=== PATIENT | male | born 1980 | race Caucasian/White ===

== ENCOUNTER 2018-09-11 05:50 | Inpatient (IN) | payer MEDICAID ==
[~2018-09-11] VITALS: Ht 172.7 cm; Wt 107.0 kg
[~2018-09-11 05:50] MED LIST: ALLOPURINOL 30300 M1 PO; CIPRO500 MG PO; DARVOCET-N 1001 EACH PO; FISH OIL 1,001000 M2 PO; FLAGYL500 MG PO; HYDROCODON-ACE1 EAC7 PO
[2018-09-11 06:34] VITALS: BP 148/75
[2018-09-11 14:00] VITALS: BP 124/82
--- NOTE | 2018-09-11 14:43 | NUR ---
PT TO ROOM 114 VIA BED. PT REPORTS PAIN CONTROLLED. DENIES NAUSEA AT THIS TIME. 100% ON 2L NC. FAMILY AT BS. GROSSMAN CATH DRAINING
--- NOTE | 2018-09-11 17:03 | NUR ---
PT TO ROOM THIS AFTERNOON. PAIN CONTROLLED WITH PAIN MEDS. TOLERATING CLEAR LIQUIDS WELL. GROSSMAN CATHETER DRAINING CLEAR YELLOW URINE
[2018-09-11 20:00] VITALS: BP 109/64
--- NOTE | 2018-09-11 21:19 | NUR ---
INITAL ASSESMENT COMPLETED AT 1999. PT REORTS PAIN SCORE AT 1-2 AFTER RECIEVING PAIN MEDS AT END OF DAY SHIFT. PT AFEBRILE, HEART RATE AND BLOOD PRESSURE WITHIN NORMAL LIMITS. CONTINUOUS PULSE OXYMETRY WITH SAT OF 97% ON O2 AT 2 LITERS. PT INSTRUCTED TO CALL FOR ASSISTANCE AND TO REPORT ONSET OF PAIN. EDUCATED PT ON POST OPERATIVE CONCERNS FOR BOWEL RESECTION, COLOSTOMY REANASTAMOSIS. ENCOURAGE PT TO USE INCENTIVE SPIROMETRY Q 1 HR WHILE AWAKE. CALL LIGHT IN REACH, PT DEMONSTRATES PROPER USE.
[2018-09-12] VITALS: BP 102/66
[2018-09-12 04:00] VITALS: BP 105/61
[2018-09-12 04:09] LABS: ABSOLUTE BASOPHILS 0.1 thou/uL (0.0-0.2); ABSOLUTE LYMPHOCYTES 2.5 thou/uL (0.8-5.3); ABSOLUTE MONOCYTES 0.9 thou/uL (0.0-1.2); BASOPHILS 0.6 %; EOSINOPHILS 0.2 %; HEMOGLOBIN 13.5 gm/dL (14.0-18.0); MCH 30.6 pg (26.0-34.0); MCHC 33.9 g/dL (28.0-37.0); MCV 90.3 fL (80.0-100.0); MONOCYTES 8.4 %; MPV 7.5 fl. (7.2-11.1); NUCLEATED RBCS 0 /100WBC; PLATELET COUNT* 185 thou/uL (150-400); POLYS 66.8 %; RBC 4.43 mil/uL (4.50-6.00); RDW-CV 13.6 % (10.5-14.5); WBC 10.5 thou/uL (4.0-11.0)
[2018-09-12 04:23] LABS: CREATININE 1.3 mg/dL (0.6-1.3); POTASSIUM 4.2 mmol/L (3.5-5.1)
[2018-09-12 07:59] VITALS: BP 93/64
--- NOTE | 2018-09-12 15:21 | NUR ---
MET WITH PT TO DISCUSS HOME SITUATION/DC PLANNING PT LIVES WITH MOTHER. HE IS INDEPENDENT AND ACTIVE. WORKS OUTSIDE THE HOME AND USES NO EQUIPMENT. PT IS S/P COLOSTOMY TAKE DOWN. STATES FEELING GOOD TODAY AND POSSIBLE DC TOMORROW. PT EXCITED TO HAVE SURGERY OVER. DENIES ANY DC NEEDS. CM TO FOLLOW
[2018-09-12 15:30] VITALS: BP 110/72
--- NOTE | 2018-09-12 18:36 | NUR ---
ALERT AND ORIENTED X4. UP AD BENJAMIN IN ROOM. CHEST PORT IS PATENT AND SALINE LOCKED. PAIN BEING MANAGED WITH PO AND IV PAIN MEDICATION. TOLERATING SOFT DIET. ABDOMINAL BINDER IN PLACE. AMBULATED IN HALLWAYS TWICE THIS SHIFT. GROSSMAN REMOVED THIS AM. HAD BOWEL MOVEMENT THIS AFTERNOON. VSS ON ROOM AIR. HOURLY ROUNDS HAVE BEEN MAINTAINED THROUGHOUT SHIFT. CALL LIGHT IS WITHIN REACH. NURSING WILL CONTINUE TO MONITOR.
[2018-09-12 20:00] VITALS: BP 106/76; BP 97/53
[2018-09-13 04:35] LABS: HEMATOCRIT 37.8 % (42.0-52.0); MCH 30.9 pg (26.0-34.0); MCHC 34.3 g/dL (28.0-37.0); MCV 90.3 fL (80.0-100.0); MPV 7.7 fl. (7.2-11.1); RBC 4.19 mil/uL (4.50-6.00); RDW-CV 13.5 % (10.5-14.5)
[2018-09-13 05:20] LABS: CALCIUM 8.1 mg/dL (8.5-10.1); CREATININE 0.9 mg/dL (0.6-1.3)
--- NOTE | 2018-09-13 06:04 | NUR ---
ASSUMED PATIENT CARE AT 1900. PATIENT ALERT AND ORIENTED TIMES FOUR. STRIPE MATCHER COMPLETED. STATED THAT HE IS "MOSTLY" PAIN FREE.PATIENT IS HOPEFUL THAT HE WILL BE ABLE TO GO HOME TODAY. MINOR COMLAINTS OF PAIN WERE CONTROLLED WITH SHEDULED MEDICATIONS. HOURLY ROUNDING COMPLETTED CHARTED
[2018-09-13 09:00] VITALS: BP 119/62
[2018-09-13] MEDS ORDERED: COLACE100 MG PO (09:38)
[2018-09-13] MEDS ORDERED: NORCO 5-325 TA1 EACH PO (09:40)
[2018-09-13 10:26] VITALS: BP 119/62
[2018-09-13 10:48] VITALS: BP 119/62
[2018-09-13 14:03] VITALS: BP 119/62
[2018-09-13 16:24] VITALS: BP 119/62
--- NOTE | 2018-09-13 16:27 | NUR ---
PT GIVEN PRESCRIPTIONS, CARE NOTES, AND DISHCARGE INFORMATION. PT DENIED ANY FURTHER QUESTIONS OR CONCERNS. PORT DEACESSED PER PROTOCOL WITH HEPARIN FLUSH. PT BELONGINGS GATHERED. PT LEFT AMBULATORY WITH FAMILY TO HOME CARE.
--- NOTE | 2018-09-15 12:58 | OP ---
[address] [address] OPERATIVE REPORT Name: KASEY BARTON Room: [address] IN M.R.#: [id number] Admission: 09/11/18 Attend Phys: Irais Armijo DO Discharge: 09/13/18 Date of : 76 Report #: [id number] THIS REPORT FOR: //name// CC: Irais Armijo Physician staff ESTELLA ALLEN DATE OF SERVICE: 09/11/2018 PREPROCEDURE DIAGNOSES: Status ostomy, history of obstructing sigmoid colon cancer. POSTOPERATIVE DIAGNOSES: Status ostomy, history of obstructing sigmoid colon cancer. FINDINGS: Ostomy in the left lower quadrant, multiple intra-abdominal adhesions from the small bowel to the anterior abdominal wall, small bowel to the small bowel and small bowel to rectal stump. There was a wide-based lower midline incisional hernia, without contents. There was a small parastomal hernia. There was a tiny umbilical hernia. SURGEON: Irais Armijo DO. ROTARY ENGRAVER: Alireza Guido, PGY3 and Myron Gandhi, PGY-2. PROCEDURE PERFORMED: Laparoscopic ostomy reversal with primary end-to-end anastomosis and lysis of adhesions greater than 1 hour. ANESTHESIA: General endotracheal and local. ESTIMATED BLOOD LOSS: 5 mL. DRAINS: None. SPECIMENS: None. COMPLICATIONS: None. DISPOSITION: PACU to the floor. CONDITION: Stable. HISTORY OF PRESENT ILLNESS: The patient is a very pleasant 38-year-old male who is well known to me from a previous admission approximately a year ago when he presented with an obstructing and perforated sigmoid colon cancer. He was taken emergently to the operating room at that time and underwent an exploratory [facility] [address] [place] [address] OPERATIVE REPORT Name: KASEY BARTON Room: [address] [place] ..#: [id number] Admission: 09/11/18 Attend Phys: Irais Armijo, Discharge: 09/13/18 Date of : 76 Report #: [id number] laparotomy with sigmoid resection. 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 He did well in the postoperative period. He was seen by Oncology and has now completed a course of chemotherapy. He has been doing very well since the completion of his chemotherapy. He underwent a colonoscopy through the ostomy in June to verify that there were no further lesions, as the initial colonoscopy was unable to pass the lesion. This colonoscopy was clear. He was then consented for laparoscopic, possible open ostomy reversal. Risks discussed included bleeding; infection; pain; scar formation; injury to bowel, bladder, kidneys, ureters; hernias at the incision sites; need for an open procedure; failure of the anastomosis, requiring further surgery or ostomy and risks of general anesthesia. The patient understood these risks and elected to proceed. DESCRIPTION OF PROCEDURE: The patient was brought to the operating room. He was laid supine on the operating room table. SCDs were placed on bilateral lower extremities. Ancef and Flagyl were given in the perioperative period. General endotracheal anesthesia was induced by Anesthesia without difficulty. Serra was placed utilizing sterile technique. The patient was placed in stirrups. Abdomen was prepped and draped in the standard sterile fashion after the patient was taped to the bed. Timeout was performed to verify the patient and procedure. A 10 mL of 0.5% Marcaine were injected in the supraumbilical area. Incision was made with an 11 blade. Cautery was used for hemostasis. S retractors were used to visualize the fascia. Fascia was grasped and elevated between 2 Kochers. Fascia was incised using cautery. Peritoneum was bluntly entered using a Danay clamp. Finger was introduced into the abdomen to assure that there were no elisha-incisional adhesions; none were identified. Two stitches of 0 Vicryl placed on the fascia. Hiral trocar was introduced and secured with 0 Vicryl stitches. Abdomen was insufflated. The patient was placed partially head down. Camera was introduced and a brief anterior abdominal exploration was undertaken, with findings of an ostomy in the left lower quadrant with a small parastomal hernia containing omentum. There were multiple adhesions from the small bowel to the anterior abdominal wall, the small bowel to the small bowel and small bowel to the distal rectal stump. There was a wide-based hernia noted at the far inferior aspect of his lower midline incision. There was a small umbilical hernia noted without contents. Two 5-mm trocars were introduced, both in the right lower quadrant and under direct visualization. I then began a tedious lysis of adhesions of the small bowel. I began in the left lower quadrant where the small bowel was adhered to the anterior abdominal wall. These were all very thin filmy adhesions, which were easily taken down. I then encountered a small rqzvc-xy-xunuu bowel adhesions in the left lower quadrant as well. These were very carefully taken down using scissor dissection. The small bowel was then also found to be densely adhered to the rectal stump at the staple line. These were also taken down very gently using scissor dissection. Once the small bowel was entirely free, it was then mobilized into the right upper quadrant. [place] [address] OPERATIVE REPORT Name: KASEY BARTON Room: [address] M.R.#: [id number] Admission: 09/11/18 Attend Phys: Irais Armijo, DO Discharge: 09/13/18 Date of : 76 Report #: [id number] easily visualize the rectal stump. There was a long Prolene stitch coming from our previous staple line. There were a few thin filmy adhesions overlying the rectal stump, which were easily taken down using blunt dissection. The rectal stump was then freely mobile. I then turned my attention to the ostomy. There was a small parastomal hernia, which contained omentum. The omentum was quite easily reduced. Any adhesions at the site of the ostomy were then also taken down sharply using laparoscopic scissors. The patient was then placed supine. Abdomen was desufflated. I then turned my attention to the external portion of the ostomy. At the beginning of the case, ostomy had been sutured shut with a 3-0 nylon. This area was then excised using a 15 blade. Ostomy was then followed down until the fascial edges were identified, utilizing a combination of cautery and scissor dissection to lyse any adhesions. Once the fascia was identified, the ostomy was then completely circumferentially freed from the surrounding ostomy. There was quite a distance of sigmoid colon, which I was then able to pull through the side of the ostomy. It was all quite free and there was no tension. Allis clamps were placed on the end of the sigmoid colon. Any adhesions in this area were carefully removed. There were some additional areas of loose mesentery, which were removed using the LigaSure until the site of our future anastomosis was completely clear. The old ostomy site was then transected using heavy curved scissors. Allis clamps were placed on the now open portion of the sigmoid colon. A brief anterior exploration was undertaken, with no findings of any diverticula or any trauma to the anterior of the colon. A 25-EEA anvil was then introduced and gently slid within the sigmoid colon. The edges of the enterotomy were approximated using Allis clamps. A 60-mm blue load stapler was then used to transect the end of the old ostomy. This was then handed off. The anvil was then gently pushed through our new staple line. Sigmoid colon was then returned into the abdomen. A Betadine-soaked lap pad was placed in our ostomy site. Abdomen was reinsufflated. At this point, my security assistant, Dr. Guido, went below. The rectal stump was dilated several times using the 25 EEA. The fit here was quite snug. EEA stapler was then introduced without difficulty to the end of the rectal stump and an end-to-end anastomosis was created without difficulty. Care was taken during the creation of the anastomosis to make sure that the proximal colon was not twisted or under any tension. Small bowel was held out of place to make sure that it was not involved in the anastomosis. The stapler was then removed and our donuts were inspected. Pelvis was then filled with saline and the proximal sigmoid was clamped. Dr. Guido then performed a bubble test, with no findings of any leak. The pelvis was then suctioned until clear. Omentum was brought down to its normal anatomical position. The small bowel was visualized and appeared to be without damage. All trocars were then removed under direct visualization. There was no bleeding noted from the peritoneum. Kochers were then placed on the fascia of our supraumbilical port. Previously placed [address] [address] OPERATIVE REPORT Name: KASEY BARTON Room: [address] M.R.#: [id number] Admission: 09/11/18 Attend Phys: Irais RommelShae Armijo, Discharge: 09/13/18 Date of : 76 Report #: [id number] Vicryl stitch was removed and a 0 Vicryl stitch was placed in a yldcva-sz-afqpf fashion with excellent approximation of the fascia. An additional 10 mL of 0.5% Marcaine were injected in this area. This wound was then closed in a layered fashion using deep and superficial stitches of 3-0 Vicryl in inverted interrupted fashion. All laparoscopic incisions were then closed with 4-0 Monocryl. We then turned our attention to the site of the old ostomy. Kochers were placed on the edges of the fascia. The fascia was then closed with multiple interrupted stitches of a 0 Prolene in a elwbfe-ss-kybgi fashion with excellent approximation of the fascia. An additional 10 mL of 0.5% Marcaine were injected here. This wound was then closed in a layered fashion using deep and superficial stitches of 3-0 Vicryl in inverted interrupted fashion. Subcutaneous tissues were copiously irrigated. Wound was then loosely approximated using moriah. A total of 50 mL of 0.5% Marcaine were used to anesthetize the wounds. Wounds were then cleansed and covered with Mastisol, Steri-Strips, 4 x 4's, and a Tegaderm. Old ostomy site was covered with 4 x 4s and Medipore tape. The patient was then allowed to awaken from anesthesia, was extubated and transported to the recovery room with no further difficulties. Counts were correct x 2 at the conclusion of the case. Binder was placed in the operating room. <ELECTRONICALLY SIGNED> By: Irais Armijo DO 09/15/18 1258 [id number] Armijo DO /nt
== END 2018-09-13 16:28 | disposition home or self-care (01) | DRG 337 ==
LOC: M.TBA 05:50 → M.ORTHSURG 05:50 → M.PRE 06:36 → M.ORTHSURG 12:52 → M.PRE 14:47 → M.ORTHSURG 09-13 16:28
PROVIDERS: ADMIT Surgery
PROC: 0DSN4ZZ Reposition Sigmoid Colon, Percutaneous Endoscopic Approach (ICD-10-PCS; principal; 2018-09-11)
PROC: 0DN84ZZ Release Small Intestine, Percutaneous Endoscopic Approach (ICD-10-PCS; principal; 2018-09-11)
DX: Z43.3 Encounter for attention to colostomy (principal); Z85.038 Personal history of other malignant neoplasm of large intestine

== ENCOUNTER 2019-09-29 21:10 | Emergency (ER) | payer MEDICAID ==
[~2019-09-29] VITALS: Ht 170.2 cm; Wt 99.8 kg
[~2019-09-29 21:10] MED LIST changes: +COLACE100 MG PO; +NORCO 5-325 TA1 EACH PO
[2019-09-29] MEDS ORDERED: COZAAR 25 MG TA25 M1 PO (21:25)
[2019-09-29] MEDS ORDERED: NORVASC 2.5 MG2.5 M1 PO (21:26)
[2019-09-29] MEDS ORDERED: CHILDREN'S ZYRT10 M1 PO (21:26)
[2019-09-29] MEDS ORDERED: LOPERAMIDE 2 MG2 M1 PO (21:26)
[2019-09-29] MEDS ORDERED: ONDANSETRON ODT8 MG PO (21:26)
[2019-09-29] MEDS ORDERED: COMPAZINE10 MG PO (21:26)
[2019-09-29] MEDS ORDERED: FISH OIL 1,0001 EAC9 PO (21:27)
[2019-09-29] MEDS ORDERED: SUPER THERAVIT1 EACH PO (21:27)
[2019-09-29] MEDS ORDERED: ALLOPURINOL 10100 M3 PO (21:27)
[2019-09-29 21:52] LABS: URINE BLOOD NEGATIVE (Negative); URINE CLARITY CLEAR; URINE COLOR YELLOW; URINE GLUCOSE-RANDOM NEGATIVE (Negative); URINE KETONES NEGATIVE (Negative); URINE LEUKOCYTES-REFLEX NEGATIVE (Negative); URINE NITRITE-REFLEX NEGATIVE (Negative); URINE PROTEIN 2+ (Negative); URINE SPECIFIC GRAVITY >= 1.030 (1.005-1.030)
[2019-09-29 21:55] LABS: ICTOTEST (BILI CONFIRMATORY) Negative (Negative); URINE BILIRUBIN 1+ (Negative)
[2019-09-29 21:58] LABS: ABSOLUTE EOSINOPHILS 0.1 thou/uL (0.0-0.7); ABSOLUTE LYMPHOCYTES 1.9 thou/uL (0.8-5.3); ABSOLUTE MONOCYTES 0.3 thou/uL (0.0-1.2); ABSOLUTE NEUTROPHILS 2.9 thou/uL (1.6-8.1); BASOPHILS 0.9 %; EOSINOPHILS 1.2 %; HEMATOCRIT 46.4 % (42.0-52.0); HEMOGLOBIN 16.5 gm/dL (14.0-18.0); LYMPHOCYTES 37.3 %; MCH 32.7 pg (26.0-34.0); MCHC 35.5 g/dL (28.0-37.0); MCV 92.1 fL (80.0-100.0); MPV 7.2 fl. (7.2-11.1); NUCLEATED RBCS 0 /100WBC; PLATELET COUNT* 232 thou/uL (150-400); POLYS 55.6 %; RBC 5.04 mil/uL (4.50-6.00); RDW-CV 15.7 % (10.5-14.5); WBC 5.2 thou/uL (4.0-11.0)
[2019-09-29 22:02] LABS: HYALINE CASTS 0-3 Few /LPF (None Seen); SQUAMOUS 0-3 Few /LPF (0-3)
[2019-09-29 22:03] LABS: BACTERIA-REFLEX 1-9 Few /HPF (None Seen); CRYSTALS None Seen /LPF (None Seen); MUCUS 0-3 Light strn/LPF (None Seen); URINE WBC-REFLEX 0-5 Rare /HPF (0-5)
[2019-09-29 22:04] LABS: URINE RBC None Seen /HPF (0-2)
[2019-09-29 22:10] LABS: CREATININE 1.4 mg/dL (0.6-1.3); POTASSIUM 3.5 mmol/L (3.5-5.1)
[2019-09-29 22:15] LABS: ALBUMIN 3.9 g/dL (3.4-5.0); TOTAL BILIRUBIN 1.8 mg/dL (<0.1-1.0); TOTAL PROTEIN 7.8 g/dL (6.4-8.2)
[2019-09-30] MEDS ORDERED: PHENERGAN 25 MG25 M1 PO (00:41)
[2019-09-30 00:58] VITALS: BP 150/89
== END 2019-09-30 00:59 | disposition home or self-care (01) ==
LOC: M.ERS 21:10
PROVIDERS: Emergency Medicine Emergency Medical Services
DX: R11.2 Nausea with vomiting, unspecified (principal); R10.84 Generalized abdominal pain; M10.9 Gout, unspecified; Z87.442 Personal history of urinary calculi; Z85.038 Personal history of other malignant neoplasm of large intestine; Z88.8 Allergy status to other drugs, medicaments and biological substances

== ENCOUNTER → 2019-11-28 | Outpatient (CLI) | payer MEDICAID ==
[~2019-11-28] MED LIST changes: +ALLOPURINOL 10100 M3 PO; +CHILDREN'S ZYRT10 M1 PO; +COMPAZINE10 MG PO; +COZAAR 25 MG TA25 M1 PO; +FISH OIL 1,0001 EAC9 PO; +LOPERAMIDE 2 MG2 M1 PO; +NORVASC 2.5 MG2.5 M1 PO; +ONDANSETRON ODT8 MG PO; +PHENERGAN 25 MG25 M1 PO; +SUPER THERAVIT1 EACH PO
== END ==
LOC: M.ULTRA 13:00
DX: C18.7 Malignant neoplasm of sigmoid colon (principal); Z95.828 Presence of other vascular implants and grafts

== ENCOUNTER → 2019-12-03 | Outpatient (CLI) | payer MEDICAID ==
[~2019-12-03] VITALS: Ht 170.2 cm; Wt 104.3 kg
[2019-12-03 09:38] VITALS: BP 140/90
[2019-12-03 09:47] VITALS: BP 140/92
[2019-12-03 10:15] LABS: HEMATOCRIT 39.7 % (42.0-52.0); HEMOGLOBIN 13.7 gm/dL (14.0-18.0); MCH 32.3 pg (26.0-34.0); MCHC 34.5 g/dL (28.0-37.0); MCV 93.7 fL (80.0-100.0); MPV 6.5 fl. (7.2-11.1); RBC 4.24 mil/uL (4.50-6.00); RDW-CV 16.3 % (10.5-14.5); WBC 5.8 thou/uL (4.0-11.0)
[2019-12-03 10:23] LABS: CALCIUM 8.7 mg/dL (8.5-10.1); CREATININE 1.1 mg/dL (0.6-1.3); POTASSIUM 4.2 mmol/L (3.5-5.1)
[2019-12-03 10:25] LABS: APTT 24.6 Seconds (25.0-31.3); PROTIME 9.8 Seconds (9.20-11.50)
== END ==
LOC: M.INT 08:48
PROVIDERS: Radiology Diagnostic Radiology
DX: Z45.2 Encounter for adjustment and management of vascular access device (principal); C18.7 Malignant neoplasm of sigmoid colon; Z79.899 Other long term (current) drug therapy

== ENCOUNTER → 2019-12-04 | Outpatient (CLI) | payer MEDICAID | LOC: M.INT 07:59 | DX: Z45.2 Encounter for adjustment and management of vascular access device (principal) ==

== ENCOUNTER → 2020-03-24 | Outpatient (CLI) | payer MEDICAID ==
[~2020-03-24] VITALS: Ht 170.2 cm; Wt 100.7 kg
[~2020-03-24] MED LIST changes: +CHEMO; +XARELTO15 MG PO; +XARELTO20 MG PO
[2020-03-24 08:33] VITALS: BP 146/93
[2020-03-24 08:41] LABS: HEMATOCRIT 39.1 % (42.0-52.0); HEMOGLOBIN 13.5 gm/dL (14.0-18.0); MCH 32.4 pg (26.0-34.0); MCHC 34.4 g/dL (28.0-37.0); MCV 94.3 fL (80.0-100.0); RBC 4.15 mil/uL (4.50-6.00); RDW-CV 16.9 % (10.5-14.5); WBC 5.2 thou/uL (4.0-11.0)
[2020-03-24 08:46] LABS: CALCIUM 8.9 mg/dL (8.5-10.1); CREATININE 0.9 mg/dL (0.6-1.3)
[2020-03-24 08:47] LABS: APTT 21.4 Seconds (25.0-31.3); INR 0.9; PROTIME 9.5 Seconds (9.20-11.50)
[2020-03-24 11:25] VITALS: BP 123/82
[2020-03-24 11:41] VITALS: BP 133/84
[2020-03-24 12:00] VITALS: BP 136/85
== END | disposition home or self-care (01) ==
LOC: M.INT 08:06
PROVIDERS: Radiology Vascular & Interventional Radiology; ATTEND Internal Medicine Hematology & Oncology
DX: Z45.2 Encounter for adjustment and management of vascular access device (principal); Z98.890 Other specified postprocedural states; Z79.899 Other long term (current) drug therapy; Z98.0 Intestinal bypass and anastomosis status; Z85.038 Personal history of other malignant neoplasm of large intestine; Z79.01 Long term (current) use of anticoagulants; Z87.442 Personal history of urinary calculi; Z88.8 Allergy status to other drugs, medicaments and biological substances

== ENCOUNTER → 2020-04-07 | Outpatient (CLI) | payer MEDICAID ==
[~2020-04-07] VITALS: Ht 170.2 cm; Wt 101.4 kg
[2020-04-07 08:28] VITALS: BP 119/85
[2020-04-07 08:41] LABS: HEMATOCRIT 42.8 % (42.0-52.0); HEMOGLOBIN 14.9 gm/dL (14.0-18.0); MCH 31.9 pg (26.0-34.0); MCHC 34.8 g/dL (28.0-37.0); MCV 91.6 fL (80.0-100.0); MPV 6.9 fl. (7.2-11.1); RBC 4.67 mil/uL (4.50-6.00); RDW-CV 15.6 % (10.5-14.5); WBC 5.8 thou/uL (4.0-11.0)
[2020-04-07 08:47] LABS: CALCIUM 8.9 mg/dL (8.5-10.1); CREATININE 1.2 mg/dL (0.6-1.3); POTASSIUM 3.9 mmol/L (3.5-5.1)
[2020-04-07 08:50] LABS: APTT 23.7 Seconds (25.0-31.3); PROTIME 10.7 Seconds (9.20-11.50)
[2020-04-07 10:51] VITALS: BP 120/76
== END | disposition home or self-care (01) ==
LOC: M.INT 07:58
PROVIDERS: Internal Medicine Cardiovascular Disease; ATTEND Internal Medicine Hematology & Oncology
DX: Z45.2 Encounter for adjustment and management of vascular access device (principal); C18.9 Malignant neoplasm of colon, unspecified; C78.7 Secondary malignant neoplasm of liver and intrahepatic bile duct; Z79.899 Other long term (current) drug therapy; Z98.890 Other specified postprocedural states

== ENCOUNTER 2020-04-09 13:25 | Observation (INO) | payer MEDICAID ==
[~2020-04-09] VITALS: Ht 170.2 cm; Wt 101.2 kg
[~2020-04-09 13:25] MED LIST changes: -CHEMO; -XARELTO15 MG PO; -XARELTO20 MG PO
[2020-04-09 13:33] VITALS: BP 128/99
[2020-04-09] MEDS ORDERED: CHEMO (13:35)
[2020-04-09 14:16] LABS: ABSOLUTE BASOPHILS 0.1 thou/uL (0.0-0.2); ABSOLUTE EOSINOPHILS 0.2 thou/uL (0.0-0.7); ABSOLUTE LYMPHOCYTES 2.6 thou/uL (0.8-5.3); ABSOLUTE MONOCYTES 0.4 thou/uL (0.0-1.2); ABSOLUTE NEUTROPHILS 5.5 thou/uL (1.6-8.1); BASOPHILS 1.1 %; EOSINOPHILS 1.9 %; HEMATOCRIT 42.6 % (42.0-52.0); LYMPHOCYTES 29.5 %; MCH 32.4 pg (26.0-34.0); MCHC 35.2 g/dL (28.0-37.0); MCV 92.2 fL (80.0-100.0); MONOCYTES 4.7 %; MPV 7.6 fl. (7.2-11.1); NUCLEATED RBCS 0 /100WBC; PLATELET COUNT* 199 thou/uL (150-400); POLYS 62.8 %; RBC 4.62 mil/uL (4.50-6.00); RDW-CV 15.8 % (10.5-14.5); WBC 8.8 thou/uL (4.0-11.0)
[2020-04-09 14:27] LABS: CALCIUM 8.6 mg/dL (8.5-10.1); CREATININE 1.1 mg/dL (0.6-1.3); POTASSIUM 4.2 mmol/L (3.5-5.1)
[2020-04-09 14:33] LABS: ALBUMIN 3.3 g/dL (3.4-5.0); APTT 22.9 Seconds (25.0-31.3); TOTAL BILIRUBIN 0.3 mg/dL (<0.1-1.0); TOTAL PROTEIN 6.9 g/dL (6.4-8.2)
[2020-04-09 18:00] VITALS: BP 120/79
--- NOTE | 2020-04-09 18:56 | NUR ---
PT ARRIVED TO FLOOR ABOUT 1800. RESTING IN BED. ADMIT COMPLETED. IV PATENT, INFUSING. REGULAR DIET. TOLERATED FOOD. DENIED PAIN. CALL LIGHT WITHIN REACH. WILL CONTINUE TO MONITOR.
[2020-04-09 20:10] VITALS: BP 166/97
--- NOTE | 2020-04-09 23:36 | NUR ---
[address] HILL TO REPORT FEVER OF 100.4. FURTHER INFO INCLUDING HR PROVIDED AT REQUEST. NEW ORDERS FOR RAPID CO-VID AND CTA R/O PE STAT. PATIENT UPDATED ON PLAN OF CARE. Co-vid RAPID ANTIGEN NEGATIVE. TO CT. CT RESULTS NOW AVAILABLE AND PHYSICIAN PAGED TO REPORT RESULTS. AWAITING RETURN CALL.
[2020-04-10 03:42] VITALS: BP 149/88
[2020-04-10 03:54] LABS: ABSOLUTE EOSINOPHILS 0.2 thou/uL (0.0-0.7); ABSOLUTE MONOCYTES 0.4 thou/uL (0.0-1.2); ABSOLUTE NEUTROPHILS 3.9 thou/uL (1.6-8.1); BASOPHILS 0.5 %; EOSINOPHILS 2.1 %; HEMATOCRIT 38.3 % (42.0-52.0); HEMOGLOBIN 13.1 gm/dL (14.0-18.0); LYMPHOCYTES 39.5 %; MCH 32.1 pg (26.0-34.0); MCHC 34.2 g/dL (28.0-37.0); MCV 93.7 fL (80.0-100.0); MONOCYTES 5.6 %; MPV 7.8 fl. (7.2-11.1); NUCLEATED RBCS 0 /100WBC; PLATELET COUNT* 160 thou/uL (150-400); POLYS 52.3 %; RBC 4.09 mil/uL (4.50-6.00); RDW-CV 15.8 % (10.5-14.5); WBC 7.5 thou/uL (4.0-11.0)
[2020-04-10 04:02] LABS: CALCIUM 8.4 mg/dL (8.5-10.1); POTASSIUM 3.8 mmol/L (3.5-5.1)
--- NOTE | 2020-04-10 04:52 | NUR ---
PATIENT HAS REMAINED ALERT AND ORIENTED X 4 THROUGHOUT THE SHIFT AND RESTING QUIETLY ON HOURLY ROUNDS. DR. HILL RETURNED CALL [phone]. CTA RESULTS GIVEN. NO NEW ADDITIONAL ORDERS. LOVENOX BID CONTINUES AND WAS PROVIDED ORDERED. VITAL SIGNS IMPROVED WITH 0400 ASSESSMENT. AFEBRILE AND HR RATE WITHIN NORMAL LIMITS. RUE KEPT ELEVATED ON TWO PILLOWS. PATIENT HAS HAD NO CHANGES OVERNIGHT. ALL EXTREMITIES COOL. 2+ RADIAL AND PEDAL PULSES. SOME DISCOMFORT IN RIGHT BICEP ON AND OFF BUT NOT CHANGED FROM ADMISSION. HAS NOT REQUIRED PAIN MEDICATION. CONTINUE TO MONITOR.
[2020-04-10 07:51] VITALS: BP 150/85
[2020-04-10] MEDS ORDERED: XARELTO15 MG PO (08:55)
[2020-04-10] MEDS ORDERED: XARELTO20 MG PO (08:55)
[2020-04-10 10:23] VITALS: BP 150/85
--- NOTE | 2020-04-10 11:18 | NUR ---
PT DISCHARGED TO HOME WITH NURSING STAFF AND PARENT. IV OUT. DENIED PAIN. DENIED N/V. PT STABLE UPON DISCHARGE. PRESCRIPTIONS EFAXED TO PHARMACY. PERSONAL ITEM SENT WITH PT.
== END 2020-04-10 11:19 | disposition home or self-care (01) ==
LOC: M.ERS 13:25 → M.TBA-ER 16:24 → M.ORTHSURG 16:24
PROVIDERS: Physician Assistant; ADMIT Internal Medicine; ATTEND Internal Medicine
DX: I82.629 Acute embolism and thrombosis of deep veins of unspecified upper extremity (principal); I26.99 Other pulmonary embolism without acute cor pulmonale; R00.0 Tachycardia, unspecified; D68.59 Other primary thrombophilia; C78.5 Secondary malignant neoplasm of large intestine and rectum

== ENCOUNTER → 2020-07-17 | Outpatient (CLI) | payer MEDICAID ==
[~2020-07-17] MED LIST changes: +CHEMO; +XARELTO15 MG PO; +XARELTO20 MG PO
== END ==
LOC: M.WC 08:00
PROVIDERS: ATTEND Family Medicine
DX: T81.89XA Other complications of procedures, not elsewhere classified, initial encounter (principal); C18.9 Malignant neoplasm of colon, unspecified; I10 Essential (primary) hypertension; M10.9 Gout, unspecified; Z93.3 Colostomy status; Y92.238 Other place in hospital as the place of occurrence of the external cause; Y83.8 Other surgical procedures as the cause of abnormal reaction of the patient, or of later complication, without mention of misadventure at the time of the procedure

== ENCOUNTER → 2020-07-28 | Outpatient (CLI) | payer MEDICAID | LOC: M.WC 08:42 | PROVIDERS: ATTEND Surgery | DX: T81.89XD Other complications of procedures, not elsewhere classified, subsequent encounter (principal); M10.9 Gout, unspecified; Z85.038 Personal history of other malignant neoplasm of large intestine; Y83.8 Other surgical procedures as the cause of abnormal reaction of the patient, or of later complication, without mention of misadventure at the time of the procedure ==

== ENCOUNTER → 2020-08-08 | Outpatient (CLI) | payer MEDICAID | LOC: M.WC 08-01 10:00 | PROVIDERS: ATTEND Family Medicine | DX: T81.89XD Other complications of procedures, not elsewhere classified, subsequent encounter (principal); M10.9 Gout, unspecified; Z85.038 Personal history of other malignant neoplasm of large intestine; Y83.8 Other surgical procedures as the cause of abnormal reaction of the patient, or of later complication, without mention of misadventure at the time of the procedure ==

== ENCOUNTER → 2020-08-15 | Outpatient (CLI) | payer MEDICAID | LOC: M.WC 08:13 | PROVIDERS: ATTEND Family Medicine | DX: T81.89XD Other complications of procedures, not elsewhere classified, subsequent encounter (principal); M10.9 Gout, unspecified; Z85.038 Personal history of other malignant neoplasm of large intestine; Y83.8 Other surgical procedures as the cause of abnormal reaction of the patient, or of later complication, without mention of misadventure at the time of the procedure ==

== ENCOUNTER 2020-08-22 15:57 | Emergency (ER) | payer MEDICAID ==
[~2020-08-22] VITALS: Ht 170.2 cm; Wt 106.6 kg
[2020-08-22] MEDS ORDERED: SANCUSO1 EACH TOP (16:14)
[2020-08-22 16:56] LABS: URINE BILIRUBIN NEGATIVE (Negative); URINE BLOOD NEGATIVE (Negative); URINE CLARITY CLEAR; URINE COLOR YELLOW; URINE GLUCOSE-RANDOM 1+ (Negative); URINE KETONES NEGATIVE (Negative); URINE LEUKOCYTES-REFLEX NEGATIVE (Negative); URINE NITRITE-REFLEX NEGATIVE (Negative); URINE PROTEIN 2+ (Negative); URINE SPECIFIC GRAVITY >= 1.030 (1.005-1.030); URINE UROBILINOGEN 0.2 E.U./dl (0.2-1.0)
[2020-08-22 17:09] LABS: AMORPHOUS URATES Few /LPF (None Seen); BACTERIA-REFLEX 1-9 Few /HPF (None Seen); FINE GRANULAR CASTS 0-3 Few /LPF (None Seen); HYALINE CASTS 0-3 Few /LPF (None Seen); MUCUS 0-3 Light strn/LPF (None Seen); SQUAMOUS 0-3 Few /LPF (0-3); URINE RBC 0-2 Rare /HPF (0-2); URINE WBC-REFLEX 0-5 Rare /HPF (0-5)
[2020-08-22 18:10] LABS: ABSOLUTE BASOPHILS 0.1 thou/uL (0.0-0.2); ABSOLUTE LYMPHOCYTES 1.6 thou/uL (0.8-5.3); ABSOLUTE MONOCYTES 0.3 thou/uL (0.0-1.2); ABSOLUTE NEUTROPHILS 7.8 thou/uL (1.6-8.1); BASOPHILS 0.5 %; EOSINOPHILS 0.3 %; HEMOGLOBIN 16.2 gm/dL (14.0-18.0); LYMPHOCYTES 16.2 %; MCH 30.7 pg (26.0-34.0); MCHC 33.6 g/dL (28.0-37.0); MCV 91.3 fL (80.0-100.0); MONOCYTES 2.7 %; MPV 6.9 fl. (7.2-11.1); NUCLEATED RBCS 0 /100WBC; PLATELET COUNT* 248 thou/uL (150-400); POLYS 80.3 %; RBC 5.26 mil/uL (4.50-6.00); RDW-CV 15.6 % (10.5-14.5); WBC 9.7 thou/uL (4.0-11.0)
[2020-08-22 18:19] LABS: APTT 25.2 Seconds (25.0-31.3); INR 1.1; PROTIME 11.9 Seconds (9.20-11.50)
[2020-08-22 18:29] LABS: CALCIUM 8.7 mg/dL (8.5-10.1); POTASSIUM 3.8 mmol/L (3.5-5.1)
[2020-08-22 18:39] LABS: ALBUMIN 3.9 g/dL (3.4-5.0)
[2020-08-22] MEDS ORDERED: ONDANSETRON ODT4 MG PO (19:15)
[2020-08-22] MEDS ORDERED: APAP W/CODEINE1 TA2 PO (19:15)
[2020-08-22 19:40] VITALS: BP 135/84
--- NOTE | 2020-08-23 12:45 | EKG ---
[place] [address] ELECTROCARDIOGRAM REPORT Name: KASEY BARTON [id number] Admission: 08/22/20 Attend Phys: Discharge: 08/22/20 Date of : 76 Date of Service: 08/22/201654 Report #: [id number] THIS REPORT FOR: //name// [facility] ED Test Date: 2020-08-22 Test Time: 16:55:07 Pat Name: KASEY BARTON Department: Room: Gender: Toll Ticket Clerk: [place] : 1980 Requested By: Jose Christie Order Number: [id number] MD: Bogdan Hannah Measurements Intervals [place] Rate: 99 P: 36 [place]: 128 QRS: 17 QRSD: 86 T: 29 QT: 322 QTc: 414 Interpretive Statements Sinus rhythm ST elev, probable normal early repol pattern No previous ECG available for comparison Electronically Signed On 08-23-2020 12:45:18 [employer]INE [employer] by Bogdan Hannah [email or web address] <ELECTRONICALLY SIGNED> By: Bogdan Hannah MD, [facility] 08/23/20 1245 54 54 Bogdan Hannah MD, FACC /EPI
== END 2020-08-22 19:40 | disposition home or self-care (01) ==
LOC: M.ERS 15:57
PROVIDERS: Family Medicine
DX: R11.2 Nausea with vomiting, unspecified (principal); R79.1 Abnormal coagulation profile; Z79.899 Other long term (current) drug therapy; Z88.8 Allergy status to other drugs, medicaments and biological substances

== ENCOUNTER → 2020-08-29 | Outpatient (CLI) | payer MEDICAID ==
[~2020-08-29] MED LIST changes: +APAP W/CODEINE1 TA2 PO; +ONDANSETRON ODT4 MG PO; +SANCUSO1 EACH TOP
== END ==
LOC: M.WC 09:00
PROVIDERS: ATTEND Family Medicine
DX: T81.89XD Other complications of procedures, not elsewhere classified, subsequent encounter (principal); M10.9 Gout, unspecified; Z85.038 Personal history of other malignant neoplasm of large intestine; Y83.8 Other surgical procedures as the cause of abnormal reaction of the patient, or of later complication, without mention of misadventure at the time of the procedure

== ENCOUNTER → 2020-09-12 | Outpatient (CLI) | payer MEDICAID | LOC: M.WC 08:04 | PROVIDERS: ATTEND Family Medicine | DX: T81.89XD Other complications of procedures, not elsewhere classified, subsequent encounter (principal); S21.112D Laceration without foreign body of left front wall of thorax without penetration into thoracic cavity, subsequent encounter; M10.9 Gout, unspecified; Z85.038 Personal history of other malignant neoplasm of large intestine; Y83.8 Other surgical procedures as the cause of abnormal reaction of the patient, or of later complication, without mention of misadventure at the time of the procedure; X58.XXXD Exposure to other specified factors, subsequent encounter ==

== ENCOUNTER → 2020-10-10 | Outpatient (CLI) | payer MEDICAID | LOC: M.WC 08:45 | PROVIDERS: ATTEND Family Medicine | DX: T81.89XD Other complications of procedures, not elsewhere classified, subsequent encounter (principal); S21.102D Unspecified open wound of left front wall of thorax without penetration into thoracic cavity, subsequent encounter; M10.9 Gout, unspecified; C78.7 Secondary malignant neoplasm of liver and intrahepatic bile duct; Z85.038 Personal history of other malignant neoplasm of large intestine; X58.XXXD Exposure to other specified factors, subsequent encounter; Y83.8 Other surgical procedures as the cause of abnormal reaction of the patient, or of later complication, without mention of misadventure at the time of the procedure ==

== ENCOUNTER → 2020-10-24 | Outpatient (CLI) | payer MEDICAID | LOC: M.WC 08:12 | PROVIDERS: ATTEND Family Medicine | DX: T81.89XD Other complications of procedures, not elsewhere classified, subsequent encounter (principal); M10.9 Gout, unspecified; C78.7 Secondary malignant neoplasm of liver and intrahepatic bile duct; Z85.038 Personal history of other malignant neoplasm of large intestine; Y83.8 Other surgical procedures as the cause of abnormal reaction of the patient, or of later complication, without mention of misadventure at the time of the procedure ==

== ENCOUNTER → 2020-11-07 | Outpatient (CLI) | payer MEDICAID | LOC: M.WC 07:45 | PROVIDERS: ATTEND Family Medicine | DX: T81.89XD Other complications of procedures, not elsewhere classified, subsequent encounter (principal); M10.9 Gout, unspecified; C78.7 Secondary malignant neoplasm of liver and intrahepatic bile duct; Z85.038 Personal history of other malignant neoplasm of large intestine; Y83.8 Other surgical procedures as the cause of abnormal reaction of the patient, or of later complication, without mention of misadventure at the time of the procedure ==

== ENCOUNTER → 2020-12-05 | Outpatient (CLI) | payer MEDICAID | LOC: M.WC 08:00 | PROVIDERS: ATTEND Family Medicine | DX: T81.89XD Other complications of procedures, not elsewhere classified, subsequent encounter (principal); C78.7 Secondary malignant neoplasm of liver and intrahepatic bile duct; M10.9 Gout, unspecified; Z85.038 Personal history of other malignant neoplasm of large intestine; Z79.899 Other long term (current) drug therapy; Y83.8 Other surgical procedures as the cause of abnormal reaction of the patient, or of later complication, without mention of misadventure at the time of the procedure ==

== ENCOUNTER 2020-12-13 17:21 | Emergency (ER) | payer MEDICAID ==
[~2020-12-13] VITALS: Ht 170.2 cm; Wt 104.3 kg
[2020-12-13 17:48] LABS: ABSOLUTE BASOPHILS 0.1 thou/uL (0.0-0.2); ABSOLUTE EOSINOPHILS 0.1 thou/uL (0.0-0.7); ABSOLUTE LYMPHOCYTES 2.3 thou/uL (0.8-5.3); ABSOLUTE MONOCYTES 0.2 thou/uL (0.0-1.2); EOSINOPHILS 1.2 %; HEMATOCRIT 50.2 % (42.0-52.0); LYMPHOCYTES 26.7 %; MCH 31.2 pg (26.0-34.0); MCHC 33.9 g/dL (28.0-37.0); MCV 91.8 fL (80.0-100.0); MONOCYTES 2.3 %; MPV 6.7 fl. (7.2-11.1); NUCLEATED RBCS 0 /100WBC; PLATELET COUNT* 254 thou/uL (150-400); POLYS 68.8 %; RBC 5.47 mil/uL (4.50-6.00); RDW-CV 14.9 % (10.5-14.5); WBC 8.8 thou/uL (4.0-11.0)
[2020-12-13 17:56] LABS: CALCIUM 10.1 mg/dL (8.5-10.1); CREATININE 1.4 mg/dL (0.6-1.3); POTASSIUM 3.7 mmol/L (3.5-5.1)
[2020-12-13 18:01] LABS: ALBUMIN 4.2 g/dL (3.4-5.0); TOTAL BILIRUBIN 1.1 mg/dL (<0.1-1.0); TOTAL PROTEIN 8.4 g/dL (6.4-8.2)
[2020-12-13 19:46] LABS: URINE BLOOD NEGATIVE (Negative); URINE CLARITY CLEAR; URINE COLOR YELLOW; URINE GLUCOSE-RANDOM NEGATIVE (Negative); URINE KETONES NEGATIVE (Negative); URINE LEUKOCYTES-REFLEX NEGATIVE (Negative); URINE NITRITE-REFLEX NEGATIVE (Negative); URINE PROTEIN 2+ (Negative); URINE SPECIFIC GRAVITY >= 1.030 (1.005-1.030); URINE UROBILINOGEN 0.2 E.U./dl (0.2-1.0)
[2020-12-13 19:47] LABS: ICTOTEST (BILI CONFIRMATORY) Negative (Negative); URINE BILIRUBIN 1+ (Negative)
[2020-12-13 19:55] LABS: CRYSTALS None Seen /LPF (None Seen); FINE GRANULAR CASTS 0-3 Few /LPF (None Seen); HYALINE CASTS 0-3 Few /LPF (None Seen); MUCUS 0-3 Light strn/LPF (None Seen); SQUAMOUS 0-3 Few /LPF (0-3)
[2020-12-13 19:57] LABS: BACTERIA-REFLEX None Seen /HPF (None Seen); URINE RBC None Seen /HPF (0-2); URINE WBC-REFLEX 0-5 Rare /HPF (0-5)
[2020-12-13] MEDS ORDERED: PHENERGAN 25 MG25 MG PO (20:46)
[2020-12-13] MEDS ORDERED: ZOFRAN ODT4 MG PO (20:46)
[2020-12-13 20:55] VITALS: BP 151/76
== END 2020-12-13 20:55 | disposition home or self-care (01) ==
LOC: M.ERS 17:21
PROVIDERS: Family Medicine
DX: R11.2 Nausea with vomiting, unspecified (principal); C78.7 Secondary malignant neoplasm of liver and intrahepatic bile duct; E86.0 Dehydration; R19.7 Diarrhea, unspecified; K30 Functional dyspepsia; Z87.442 Personal history of urinary calculi; Z85.038 Personal history of other malignant neoplasm of large intestine; Z85.05 Personal history of malignant neoplasm of liver; Z79.899 Other long term (current) drug therapy; Z88.8 Allergy status to other drugs, medicaments and biological substances